=== PATIENT | male | born 1990 | race Two or more races ===

== ENCOUNTER 2024-07-29 02:21 | Emergency (ER) | payer OTHER ==
[~2024-07-29] VITALS: Ht 175.3 cm; Wt 107.3 kg
[2024-07-29 02:42] VITALS: TEMP 97.8
[2024-07-29 03:02] VITALS: BP 133/89; PULSE 100; RESP 16; O2SAT 96
== END 2024-07-29 04:16 | disposition home or self-care (01) ==
LOC: EMS 02:21
DX: Z02.89 Encounter for other administrative examinations (principal); Z88.0 Allergy status to penicillin; Z65.3 Problems related to other legal circumstances; V89.2XXA Person injured in unspecified motor-vehicle accident, traffic, initial encounter; Y93.89 Activity, other specified; Y92.410 Unspecified street and highway as the place of occurrence of the external cause; Y99.8 Other external cause status
CPT/HCPCS: 99283; Z7502